=== PATIENT | female | born 1980 | race Caucasian/White ===

== ENCOUNTER → 2022-03-06 14:06 | Outpatient (BNVA) | payer OTHER, SELFPAY | PROVIDERS: Visit Provider Nurse Practitioner Psychiatric/Mental Health | DX: F14.20 Cocaine dependence, uncomplicated (principal); F41.9 Anxiety disorder, unspecified; F32.A Depression, unspecified | CPT/HCPCS: 99212 ==

== ENCOUNTER → 2022-03-19 13:02 | Outpatient (BNVA) | payer OTHER, SELFPAY | PROVIDERS: Visit Provider Nurse Practitioner Psychiatric/Mental Health | DX: F10.20 Alcohol dependence, uncomplicated (principal); F14.20 Cocaine dependence, uncomplicated | CPT/HCPCS: 80305; 81025; 96372; 99212 ==

== ENCOUNTER 2022-04-17 10:32 | Outpatient (REF) | payer OTHER, SELFPAY ==
[2022-04-17 13:33] LABS: Alanine Aminotransferase 14 U/L (0-31); Albumin Level 4.1 g/dL (3.5-5.0); Alkaline Phosphatase 52 U/L (39-117); Aspartate Amino Transferase 14 U/L (5-31); Bilirubin Direct < 0.2 mg/dL (0.0-0.5); Bilirubin Total 0.4 mg/dL (0.0-1.0); Total Protein 6.5 g/dL (6.5-8.0)
== END 2022-04-17 10:33 | disposition home or self-care (01) ==
LOC: HO.LAB 10:32
PROVIDERS: PCP Internal Medicine; Visit Provider Nurse Practitioner Psychiatric/Mental Health
DX: F10.20 Alcohol dependence, uncomplicated (principal); F14.20 Cocaine dependence, uncomplicated; F41.9 Anxiety disorder, unspecified; F32.A Depression, unspecified; Z79.899 Other long term (current) drug therapy
CPT/HCPCS: 36415; 80076; 80305; 81025; 96372

== ENCOUNTER → 2022-06-05 13:11 | Outpatient (BNVA) | payer OTHER, SELFPAY | PROVIDERS: PCP Internal Medicine; Visit Provider Nurse Practitioner Psychiatric/Mental Health | DX: Z13.89 Encounter for screening for other disorder (principal) ==

== ENCOUNTER → 2022-07-10 13:03 | Outpatient (BNVA) | payer OTHER, SELFPAY | PROVIDERS: PCP Internal Medicine; Visit Provider Nurse Practitioner Psychiatric/Mental Health | DX: Z13.89 Encounter for screening for other disorder (principal) ==

== ENCOUNTER → 2022-09-04 13:25 | Outpatient (BNVA) | payer OTHER, SELFPAY | PROVIDERS: PCP Internal Medicine; Visit Provider Nurse Practitioner Psychiatric/Mental Health | DX: F10.20 Alcohol dependence, uncomplicated (principal); F14.20 Cocaine dependence, uncomplicated; F32.A Depression, unspecified; F41.9 Anxiety disorder, unspecified; Z79.891 Long term (current) use of opiate analgesic | CPT/HCPCS: 80305 ==

== ENCOUNTER → 2022-10-09 13:14 | Outpatient (BNVA) | payer OTHER, SELFPAY | PROVIDERS: PCP Internal Medicine; Visit Provider Nurse Practitioner Psychiatric/Mental Health | DX: Z51.81 Encounter for therapeutic drug level monitoring (principal) ==

== ENCOUNTER 2022-12-11 14:13 | Outpatient (AMB) | payer OTHER, SELFPAY ==
--- NOTE | 2022-12-11 14:18 | MHC.OFFVIS ---
Intake Vital Signs 12/11/22 14:21 BP 110/70 Blood Pressure Location Lt radial Position Sitting Pulse 72 Pulse Source Pulse Oximeter Pulse Oximetry (%) 98 Oxygen Delivery Method Room Air Intake Visit Reasons: MAT Visit Intake Note: the patient presents for a mat visit Conductor And Engineer Required: No Allergies Penicillins [PENICILLINS] Allergy (Unknown, Unverified 10/09/22 13:26) HIVES Medication List - Last Reconciled 12/11/22 by Cassandra Ontiveros, JOE aripiprazole 5 mg PO DAILY clonidine HCl 0.1 mg PO .TID PRN doxepin 25 mg PO BEDTIME fluoxetine 10 mg PO DAILY fluoxetine 20 mg PO DAILY gabapentin 300 mg PO TID hydroxyzine HCl 50 mg PO TID PRN naltrexone 50 mg PO DAILY topiramate 100 mg PO BID HPI MAT Visit HPI Details Patient presents for follow up In recovery for 11 months Reporting increasing stress at work. Minimal time off. Discussed strategies for self care, including setting boundaries at work Denies any thoughts of drinking. Has not attended any meetings due to minimal time off. Working sometimes from Refilled medications Review of Systems Const Reports as per HPI and Reports no additional complaints Physical Exam Vital Signs: Last Vital Signs Pulse 72 12/11/22 14:21 BP 110/70 12/11/22 14:21 Pulse Ox 98 12/11/22 14:21 Oxygen Delivery Method Room Air 12/11/22 14:21 Const General: cooperative, comfortable, no acute distress and alert Nutritional Appearance: average body habitus Orientation/consciousness: patient oriented x3 Limitations: no limitations Neuro General: patient oriented x3 Psych Appearance: grossly normal Mental Status: mental status grossly normal Speech and movement: Normal speech and movement present Affect: Anxious affect present (slightly) Attitude: cooperative Thought process: Normal thought process present Thought content: Normal thought content present Insight: Good insight present (Psych) Judgement: Good judgement present (Psych) Assessment & Plan Assessment & Plan (1) Alcohol use disorder, moderate, dependence: Code(s): F10.20 - Alcohol dependence, uncomplicated Plan: continue naltrexone relapse prevention discussion follow up 6 weeks Medications: New gabapentin 300 mg PO BEDTIME 30 caps 3RF Refilled aripiprazole 5 mg PO DAILY 30 tabs 0RF doxepin 25 mg PO BEDTIME 30 caps 1RF Discontinued gabapentin Discontinued Reason: Doctor's Order 300 mg PO TID 90 caps 0RF Coding Level of Care Code Est Pt Level 3 (62856) Diagnoses Alcohol use disorder, moderate, dependence F10.20
[2022-12-11 14:21] VITALS: BP 110/70; PULSE 72; O2SAT 98
== END 2022-12-11 14:49 | disposition home or self-care (01) ==
LOC: HO.HCC 14:13
PROVIDERS: PCP Internal Medicine; Visit Provider Nurse Practitioner Psychiatric/Mental Health
DX: F10.20 Alcohol dependence, uncomplicated (principal)
CPT/HCPCS: 99213

== ENCOUNTER → 2022-12-11 14:13 | Outpatient (BNVA) | payer OTHER, SELFPAY | PROVIDERS: PCP Internal Medicine; Visit Provider Nurse Practitioner Psychiatric/Mental Health ==

== ENCOUNTER 2023-01-09 14:56 | Outpatient (AMB) | payer OTHER, SELFPAY ==
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
[2023-01-09 15:15] VITALS: BP 128/76; PULSE 81; RESP 18; O2SAT 100; BMI 42.2
== END 2023-01-09 15:55 | disposition home or self-care (01) ==
PROVIDERS: PCP Internal Medicine; Visit Provider Registered Nurse Emergency
DX: S46.912A Strain of unspecified muscle, fascia and tendon at shoulder and upper arm level, left arm, initial encounter (principal)
CPT/HCPCS: 99204

== ENCOUNTER → 2023-01-09 14:56 | Outpatient (BNVA) | payer OTHER, SELFPAY | PROVIDERS: PCP Internal Medicine; Visit Provider Registered Nurse Emergency ==

== ENCOUNTER 2023-01-22 12:52 | Outpatient (AMB) | payer OTHER, SELFPAY ==
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
[2023-01-22 12:58] VITALS: BP 126/78; PULSE 76; O2SAT 99
== END 2023-01-22 13:25 | disposition home or self-care (01) ==
LOC: HO.HCC 12:53
PROVIDERS: PCP Internal Medicine; Visit Provider Nurse Practitioner Psychiatric/Mental Health
DX: F10.21 Alcohol dependence, in remission (principal)
CPT/HCPCS: 99213

== ENCOUNTER → 2023-01-22 12:52 | Outpatient (BNVA) | payer OTHER, SELFPAY | PROVIDERS: PCP Internal Medicine; Visit Provider Nurse Practitioner Psychiatric/Mental Health ==

== ENCOUNTER 2023-03-26 12:59 | Outpatient (AMB) | payer OTHER, SELFPAY ==
[2023-03-26 13:14] VITALS: BP 110/72; PULSE 74; O2SAT 98
--- NOTE | 2023-03-26 13:14 | A.OFFVIS_ITS ---
Intake Vital Signs 03/26/23 13:14 BP 110/72 Blood Pressure Location Lt radial Position Sitting Pulse 74 Pulse Source Pulse Oximeter Pulse Oximetry (%) 98 Oxygen Delivery Method Room Air Intake Visit Reasons: mat visit Intake Note: the patient presents for a mat visit Web Solutions Architect Required: No Allergies Penicillins [PENICILLINS] Allergy (Unknown, Verified 03/26/23 13:16) HIVES Do you need a note to return to daycare/school/sports/work: No HPI mat visit HPI Details Pt presents for AUD treatment and follow up She has been working a lot lately, says it is short staffed at work and she has been called in frequently. States this is why she missed her last few appointments. She has been attending meetings 3x weekly, would like to do more but cannot due to her work schedule. She meets with her sponsor once weekly. She is feeling solid in her recovery, just recently celebrated 1 year of sobriety,' She has not been taking the naltrexone due to the copay. She is feeling like she is doing ok without. Says she hasn't taken it in 2 months. She is going on a cruise next week with her family that she is excited for. Review of Systems Const Reports as per HPI Physical Exam Vital Signs: Last Vital Signs Pulse 74 03/26/23 13:14 BP 110/72 03/26/23 13:14 Pulse Ox 98 03/26/23 13:14 Oxygen Delivery Method Room Air 03/26/23 13:14 Const General: cooperative and healthy appearing Resp Effort & Inspection: normal respiratory effort Psych Appearance: grossly normal and well kempt Mental Status: mental status grossly normal Affect: normal affect Attitude: cooperative Thought content: Normal thought content present Assessment & Plan Assessment & Plan (1) Alcohol use disorder, severe, in sustained remission: Code(s): F10.21 - Alcohol dependence, in remission Plan: Follow up 6 weeks Sent Rx for scopolamine patch for motion sickness Educated pt to try one of the patches before she leaves on her cruise to make sure she does not have any adverse reactions. Reviewed signs and symptoms of allergic reaction and when to seek a higher level of care. Medications: New scopolamine base 1 patch transdermal Q3D PRN 4 ea 0RF motion sickness Discontinued naltrexone Discontinued Reason: Patient no longer taking 50 mg PO DAILY 30 tabs 3RF Coding Level of Care Code Est Pt Level 3 (03609) Diagnoses Alcohol use disorder, severe, in sustained remission F10.21
== END 2023-03-26 13:41 | disposition home or self-care (01) ==
PROVIDERS: PCP Internal Medicine; Visit Provider Nurse Practitioner Family
DX: F10.21 Alcohol dependence, in remission (principal)
CPT/HCPCS: 99213

== ENCOUNTER → 2023-03-26 12:59 | Outpatient (BNVA) | payer OTHER, SELFPAY | PROVIDERS: PCP Internal Medicine; Visit Provider Nurse Practitioner Family ==

== ENCOUNTER 2023-07-23 11:27 | Outpatient (AMB) | payer OTHER, SELFPAY ==
--- NOTE | 2023-07-23 11:28 | A.OFFVISCC_ITS ---
Intake Vital Signs 07/23/23 11:41 BP 126/82 Blood Pressure Location Lt radial Position Sitting Pulse 88 Pulse Source Pulse Oximeter Pulse Oximetry (%) 98 Oxygen Delivery Method Room Air Intake Visit Reasons: MAT Intake Note: the patient presents for a mat visit Social Services Coordinator Required: No Allergies Penicillins [PENICILLINS] Allergy (Unknown, Verified 07/23/23 11:32) HIVES Do you need a note to return to daycare/school/sports/work: No HPI MAT HPI Details Patient presents for AUD treatment and follow up Reports she has 18 months sober as of 07/06! Recently had left shoulder surgery in April, has been on light duty at work as a result Has no concerns for recovery at this time, attends AA meeting every morning Review of Systems Const Reports as per HPI Physical Exam Vital Signs: Last Vital Signs Pulse 88 07/23/23 11:41 BP 126/82 07/23/23 11:41 Pulse Ox 98 07/23/23 11:41 Oxygen Delivery Method Room Air 07/23/23 11:41 Const General: cooperative and healthy appearing Resp Effort & Inspection: normal respiratory effort Psych Appearance: grossly normal Mental Status: mental status grossly normal Speech and movement: Normal speech and movement present Affect: normal affect Attitude: cooperative Assessment & Plan Assessment & Plan (1) Alcohol use disorder, severe, in sustained remission: Code(s): F10.21 - Alcohol dependence, in remission Plan: -Discussed with her updating labwork, labs ordered- pt to get done before next visit -Follow up 4 weeks -Reviewed with her to call [facility] with questions/concerns Orders: Orders Complete Blood Count Auto Diff Today F10.21 - Alcohol dependence, in remission AMB 14 Panel Urine Drug Screen Today Z51.81 - Encounter for therapeutic drug level monitoring Comprehensive Met. Panel Today F10.21 - Alcohol dependence, in remission Medications: Refilled topiramate 100 mg PO BID 180 tabs 1RF doxepin 25 mg PO BEDTIME 30 caps 3RF fluoxetine 20 mg PO DAILY 30 caps 3RF fluoxetine 10 mg PO DAILY 30 caps 3RF Discontinued clonidine HCl Hold for systolic bp <90 Discontinued Reason: Patient no longer taking 0.1 mg PO .TID PRN 90 tabs 1 RF for anxiety gabapentin Discontinued Reason: Patient no longer taking 300 mg PO BEDTIME 30 caps 3RF tizanidine no driving while taking this medication. may cause drowsiness. Discontinued Reason: Patient no longer taking 2 mg PO BID 14 days PRN 30 tabs 0RF muscle spasticity lidocaine 5% leave on most painful area for up to 12 hrs Discontinued Reason: Patient no longer taking 1 patch topical DAILY 30 ea 0RF Coding Level of Care Code Est Pt Level 3 (71271) Diagnoses Alcohol use disorder, severe, in sustained remission F10.21
[2023-07-23 11:41] VITALS: BP 126/82; PULSE 88; O2SAT 98
== END 2023-07-23 12:00 | disposition home or self-care (01) ==
PROVIDERS: PCP Internal Medicine; Visit Provider Nurse Practitioner Family
DX: F10.21 Alcohol dependence, in remission (principal)
CPT/HCPCS: 99213

== ENCOUNTER 2023-07-23 11:27 | Outpatient (REF) | payer OTHER, SELFPAY ==
[2023-07-23 12:11] LABS: MANUAL DIFF FLAG NO
[2023-07-23 12:42] LABS: Basophils Percent Auto 0.4 % (0-2); Eosinophils Absolute Auto 0.4 X10*3/uL (0.0-0.4); Eosinophils Percent Auto 4.7 % (0-4); Hematocrit 36.6 % (37.0-47.0); Imm Gran Abs Auto 0.05 X10*3/uL (0.00-0.03); Imm Gran Pct Auto 0.6 % (0.0-0.4); Lymphocytes Absolute Auto 2.5 X10*3/uL (1.2-4.9); Lymphocytes Percent Auto 29.3 % (20-40); Mean Corpuscular HGB Conc 32.8 g/dl (31.0-35.0); Mean Corpuscular Hemoglobin 29.3 pg (27.0-33.0); Mean Corpuscular Volume 89.5 fL (80.0-98.0); Mean Platelet Volume 9.5 fL (9.4-12.3); Monocytes Absolute Auto 0.6 X10*3/uL (0.1-1.2); Monocytes Percent Auto 7.4 % (2-11); Neutrophils Absolute Auto 4.9 x10*3/uL (2.0-8.3); Neutrophils Percent Auto 57.6 % (45-73); Platelet Count 331 X10*3/uL (160-400); Red Blood Count 4.09 X10*6/uL (4.20-5.50); Red Cell Distribution Width 13.2 % (11.0-16.0); White Blood Count 8.4 X10*3/uL (4.8-10.8)
[2023-07-23 13:13] LABS: Alanine Aminotransferase 10 U/L (0-31); Alkaline Phosphatase 70 U/L (39-117); Anion Gap 11 (12-20); Aspartate Amino Transferase 10 U/L (5-31); Bilirubin Total 0.2 mg/dL (0.0-1.0); Blood Urea Nitrogen 9 mg/dL (9-16); Calcium 9.3 mg/dL (8.4-10.2); Carbon Dioxide 24 mmol/L (22-29); Chloride 110 mmol/L (96-108); Estimated Glomerular Filt Rate > 60; Glucose Random 85 mg/dL (60-115); Potassium 3.7 mmol/L (3.3-5.1); Sodium 141 mmol/L (135-145); Total Protein 6.9 g/dL (6.5-8.0)
== END 2023-07-23 11:28 | disposition home or self-care (01) ==
LOC: HO.LAB 11:27
PROVIDERS: PCP Internal Medicine; Visit Provider Nurse Practitioner Family
DX: F10.21 Alcohol dependence, in remission (principal)
CPT/HCPCS: 36415; 80053; 85025

== ENCOUNTER 2023-08-20 11:20 | Outpatient (AMB) | payer OTHER, SELFPAY ==
--- NOTE | 2023-08-20 11:21 | A.OFFVISCC_ITS ---
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 reports depressive sx well managed finds topomax effective in managing cocaine cravings no concerns at this time Review of Systems Const Reports as per HPI and Reports no additional complaints Physical Exam Vital Signs: Last Vital Signs Resp 20 08/20/23 11:26 BP 140/80 H 08/20/23 11:26 Pulse Ox 98 08/20/23 11:26 Oxygen Delivery Method Room Air 08/20/23 11:26 Const General: cooperative and healthy appearing Orientation/consciousness: patient oriented x3 Limitations: no limitations Neuro General: patient oriented x3 Psych Appearance: well kempt Speech and movement: Normal speech and movement present Affect: normal affect Attitude: cooperative Thought process: Normal thought process present Thought content: Normal thought content present Insight: Good insight present (Psych) Judgement: Good judgement present (Psych) Assessment & Plan Assessment & Plan (1) Alcohol use disorder, severe, in sustained remission: Code(s): F10.21 - Alcohol dependence, in remission Category: Medical Plan: * recovery supports in place * medication changes updated * med review in 4 months Medications: Discontinued doxepin Discontinued Reason: Patient no longer taking 25 mg PO BEDTIME 30 caps 3RF
[2023-08-20 11:26] VITALS: BP 140/80; RESP 20; O2SAT 98
== END 2023-08-20 11:59 | disposition home or self-care (01) ==
PROVIDERS: PCP Internal Medicine; Visit Provider Nurse Practitioner Psychiatric/Mental Health
DX: F10.21 Alcohol dependence, in remission (principal)
CPT/HCPCS: 99213

== ENCOUNTER → 2023-08-20 11:20 | Outpatient (BNVA) | payer OTHER, SELFPAY | PROVIDERS: PCP Internal Medicine; Visit Provider Nurse Practitioner Psychiatric/Mental Health | DX: Z51.81 Encounter for therapeutic drug level monitoring (principal); F10.21 Alcohol dependence, in remission ==

== ENCOUNTER 2023-11-29 11:25 | Outpatient (AMB) | payer OTHER, SELFPAY ==
--- NOTE | 2023-11-29 11:32 | A.OFFVISCC_ITS ---
Intake Visit Reasons: MAT Allergies Penicillins [PENICILLINS] Allergy (Unknown, Verified 07/23/23 11:32) HIVES HPI HPI MAT: Details: Patient presents for follow up Bright affect Starts work soon -in a school Has been spending time with her daughters and mother -traveling Reflecting on time in recovery--expressing some guilt aroudn how her use impacted her children and her time Review of Systems Const Reports as per HPI and Reports no additional complaints Physical Exam Const General: cooperative and healthy appearing Orientation/consciousness: patient oriented x3 Limitations: no limitations Neuro General: patient oriented x3 Psych Appearance: well kempt Speech and movement: Normal speech and movement present Affect: normal affect Attitude: cooperative Thought process: Normal thought process present Thought content: Normal thought content present Insight: Good insight present (Psych) Judgement: Good judgement present (Psych) Assessment & Plan Assessment & Plan (1) Alcohol use disorder, severe, in sustained remission: Code(s): F10.21 - Alcohol dependence, in remission Category: Medical Plan: * continue medications as prescribed * follow up 3 months * relapse prevention discussion Medications: Refilled fluoxetine 10 mg PO DAILY 30 caps 3RF topiramate 100 mg PO BID 180 tabs 1RF
== END 2023-11-29 12:59 | disposition home or self-care (01) ==
PROVIDERS: PCP Internal Medicine; Visit Provider Nurse Practitioner Psychiatric/Mental Health
DX: F10.21 Alcohol dependence, in remission (principal)
CPT/HCPCS: 99213

== ENCOUNTER → 2023-11-29 11:25 | Outpatient (BNVA) | payer OTHER, SELFPAY | PROVIDERS: PCP Internal Medicine; Visit Provider Nurse Practitioner Psychiatric/Mental Health | DX: Z51.81 Encounter for therapeutic drug level monitoring (principal); F10.21 Alcohol dependence, in remission ==

== ENCOUNTER 2024-02-19 15:23 | Outpatient (AMB) | payer OTHER, SELFPAY ==
--- NOTE | 2024-02-19 16:24 | MHC.AM.SUB ---
Intake Visit Reasons: MAT Allergies Penicillins [PENICILLINS] Allergy (Unknown, Verified 07/23/23 11:32) HIVES HPI HPI MAT: Details: Patient presents for follow up tearful asking for increase in prozac stress at home working, but not making minimum wage, so this is creating more issues for her reviewed coping strategies denies any substance use or even thoughts of use during this time Review of Systems Const Reports as per HPI Physical Exam Const General: cooperative, healthy appearing, anxious and well groomed Psych Appearance: well kempt Speech and movement: Clear speech present Affect: Sad affect present Attitude: cooperative Assessment & Plan Assessment & Plan (1) Alcohol use disorder, severe, in sustained remission: Code(s): F10.21 - Alcohol dependence, in remission Category: Medical Plan: relapse prevention discussion (2) Depression: Code(s): F32.A - Depression, unspecified Category: Medical Qualifiers: Depression Type: major depressive disorder Major depression recurrence: recurrent Plan: increase fluoxetine to 40mg daily follow up 3 weeks Orders: Orders Complete Blood Count Auto Diff 02/19/24 Z79.899 - Other regional intermodal truck driver (current) drug therapy Comprehensive Met. Panel 02/19/24 Z79.899 - Other regional intermodal truck driver (current) drug therapy
== END 2024-02-19 15:59 | disposition home or self-care (01) ==
PROVIDERS: PCP Internal Medicine; Visit Provider Nurse Practitioner Psychiatric/Mental Health
DX: F10.21 Alcohol dependence, in remission (principal); F32.A Depression, unspecified
CPT/HCPCS: 99214

== ENCOUNTER → 2024-02-19 15:23 | Outpatient (BNVA) | payer OTHER, SELFPAY | PROVIDERS: PCP Internal Medicine; Visit Provider Nurse Practitioner Psychiatric/Mental Health | DX: Z51.81 Encounter for therapeutic drug level monitoring (principal); F10.21 Alcohol dependence, in remission ==

== ENCOUNTER 2024-04-23 13:37 | Outpatient (REF) | payer OTHER, SELFPAY ==
[2024-04-23 13:56] LABS: MANUAL DIFF FLAG NO
[2024-04-23 14:05] LABS: Basophils Percent Auto 0.4 % (0-2); Eosinophils Absolute Auto 0.3 X10*3/uL (0.0-0.4); Eosinophils Percent Auto 3.6 % (0-4); Hematocrit 34.9 % (37.0-47.0); Hemoglobin 11.5 g/dl (12.0-16.0); Imm Gran Abs Auto 0.03 X10*3/uL (0.00-0.03); Imm Gran Pct Auto 0.4 % (0.0-0.4); Lymphocytes Absolute Auto 2.7 X10*3/uL (1.2-4.9); Lymphocytes Percent Auto 32.3 % (20-40); Mean Corpuscular Hemoglobin 29.9 pg (27.0-33.0); Mean Corpuscular Volume 90.9 fL (80.0-98.0); Mean Platelet Volume 9.3 fL (9.4-12.3); Monocytes Absolute Auto 0.7 X10*3/uL (0.1-1.2); Monocytes Percent Auto 7.9 % (2-11); Neutrophils Absolute Auto 4.6 x10*3/uL (2.0-8.3); Neutrophils Percent Auto 55.4 % (45-73); Platelet Count 297 X10*3/uL (160-400); Red Blood Count 3.84 X10*6/uL (4.20-5.50); Red Cell Distribution Width 13.8 % (11.0-16.0); White Blood Count 8.4 X10*3/uL (4.8-10.8)
[2024-04-23 14:37] LABS: Alanine Aminotransferase 12 U/L (0-31); Albumin Level 3.5 g/dL (3.5-5.0); Alkaline Phosphatase 48 U/L (39-117); Anion Gap 7 (12-20); Aspartate Amino Transferase 15 U/L (5-31); Bilirubin Total 0.3 mg/dL (0.0-1.0); Blood Urea Nitrogen 9 mg/dL (9-16); Calcium 8.4 mg/dL (8.4-10.2); Carbon Dioxide 23 mmol/L (22-29); Chloride 111 mmol/L (96-108); Estimated Glomerular Filt Rate > 60; Glucose Random 91 mg/dL (60-115); Potassium 3.7 mmol/L (3.3-5.1); Sodium 137 mmol/L (135-145); Total Protein 5.7 g/dL (6.5-8.0)
== END 2024-04-23 13:38 | disposition home or self-care (01) ==
LOC: HO.LAB 13:37
PROVIDERS: PCP Internal Medicine; Visit Provider Nurse Practitioner Psychiatric/Mental Health
DX: F32.A Depression, unspecified (principal); Z79.899 Other long term (current) drug therapy
CPT/HCPCS: 36415; 80053; 85025

== ENCOUNTER 2024-04-23 14:00 | Outpatient (AMB) | payer OTHER, SELFPAY ==
--- NOTE | 2024-04-23 14:06 | A.OFFVISCC_ITS ---
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 discussed self care--will start doing jose art agin Review of Systems Const Reports as per HPI and Reports no additional complaints Physical Exam Const General: cooperative, healthy appearing, anxious and well groomed Psych Appearance: well kempt Speech and movement: Clear speech present Affect: Sad affect present Attitude: cooperative Assessment & Plan Assessment & Plan (1) Alcohol use disorder, severe, in sustained remission: Code(s): F10.21 - Alcohol dependence, in remission Category: Medical Plan: * relapse prevention discussion (2) Depression: Code(s): F32.A - Depression, unspecified Category: Medical Qualifiers: Depression Type: major depressive disorder Major depression recurrence: recurrent Plan: * continue fluoxetine at current dose * follow up 2 months
== END 2024-04-23 14:58 | disposition home or self-care (01) ==
PROVIDERS: PCP Internal Medicine; Visit Provider Nurse Practitioner Psychiatric/Mental Health
DX: F10.21 Alcohol dependence, in remission (principal); F32.A Depression, unspecified
CPT/HCPCS: 99214

== ENCOUNTER 2024-07-15 15:21 | Outpatient (AMB) | payer OTHER, SELFPAY ==
--- NOTE | 2024-07-15 15:36 | MHC.AM.SUB ---
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 Discussed how therapy may be beneficial in working through some of these things agreeable to referral for support Review of Systems Const Reports as per HPI Psych Reports anxiety and Reports anhedonia Physical Exam Const General: cooperative, healthy appearing, anxious and well groomed Psych Appearance: well kempt Speech and movement: Clear speech present Affect: normal affect Attitude: cooperative Thought process: Normal thought process present Thought content: Normal thought content present Insight: Good insight present (Psych) Judgement: Good judgement present (Psych) Assessment & Plan Assessment & Plan (1) Depression: Code(s): F32.A - Depression, unspecified Category: Medical Qualifiers: Depression Type: major depressive disorder Major depression recurrence: recurrent Plan: continue prozac 40mg QD referral placed to [facility] for therapy and possibly med provider eval (2) Alcohol use disorder, severe, in sustained remission: Code(s): F10.21 - Alcohol dependence, in remission Category: Medical Plan: relapse prevention discussion follow up 3 months Orders: Referrals Counseling Referral F10.21 - Alcohol dependence, in remission, F32.A - Depression, unspecified
== END 2024-07-15 16:17 | disposition home or self-care (01) ==
LOC: HO.HCC 15:21
PROVIDERS: PCP Internal Medicine; Visit Provider Nurse Practitioner Psychiatric/Mental Health
DX: F10.21 Alcohol dependence, in remission (principal)
CPT/HCPCS: 99213

== ENCOUNTER → 2024-07-15 15:21 | Outpatient (BNVA) | payer OTHER, SELFPAY | PROVIDERS: PCP Internal Medicine; Visit Provider Nurse Practitioner Psychiatric/Mental Health | DX: F32.A Depression, unspecified (principal); F10.21 Alcohol dependence, in remission | CPT/HCPCS: 99212 ==

== ENCOUNTER → 2024-10-12 15:27 | Outpatient (BNVA) | payer OTHER, MEDICAID, SELFPAY | PROVIDERS: PCP Internal Medicine; Visit Provider Internal Medicine ==

== ENCOUNTER 2025-02-22 14:56 | Outpatient (AMB) | payer OTHER, MEDICAID, SELFPAY ==
--- NOTE | 2025-02-22 15:06 | MHC.OFFVIS ---
Vital Signs 02/22/25 15:07 Height 5 ft 4 in Weight 222 lb BMI 38.1 BP 136/78 Pulse 78 Pulse Oximetry (%) 98 Intake Visit Reasons: MAT Allergies Penicillins (PENICILLINS) Allergy (Unknown, Verified 02/22/25 15:07) HIVES Medication List - Last Reconciled 02/22/25 by LANDON MorelandC fluoxetine 40 mg PO DAILY levothyroxine 50 mcg PO DAILY topiramate 100 mg PO BID 30 days HPI Comments Details: A 45-year-old female presents for a follow-up visit r/t stimulant use disorder in sustained remission with topiramate 100 mg BID. Denies use of opiates, alcohol, and other substances. Acknowledges vaping for nicotine and intermittent cannabis use. Engages in conversation re: plans to follow up with mental health referral. Review of Systems Const All systems reviewed & are unremarkable except as noted in HPI and below Physical Exam Vital Signs: Last Vital Signs Pulse 78 02/22/25 15:07 BP 136/78 02/22/25 15:07 Pulse Ox 98 02/22/25 15:07 BMI result Body Mass Index 38.1 Const General: cooperative Assessment & Plan Assessment & Plan (1) Other stimulant use, unspecified, in remission: Code(s): F15.91 - Other stimulant use, unspecified, in remission Category: Medical Plan The plan is to continue with topiramate 100 mg BID and fluoxetine 40 mg daily. Education provided to engage in risk reduction activities to minimize use of nicotine and cannabis. Encouraged follow-up with [facility]. Follow-up in 3 months or sooner if needed. Medications: Changed From fluoxetine (Prozac) 40 mg PO DAILY 90 caps 3RF To fluoxetine 40 mg PO DAILY 90 caps 0RF Refilled topiramate 100 mg PO BID 60 tabs 2RF 30 days Patient Instructions: - Continue with topiramate and fluoxetine as prescribed. - Engage in risk reduction activities to minimize use of nicotine and cannabis. - Follow up with [facility] re: mental health services. - Follow-up in 3 months or sooner if needed. - Call with questions, concerns, or to report side effects/new onset of symptoms to [facility]. - The patient verbalized understanding and agreed with plan of care. Coding Level of Care Code Est Pt Level 3 (39462) Diagnoses Other stimulant use, unspecified, in remission F15.91
[2025-02-22 15:07] VITALS: BP 136/78; PULSE 78; O2SAT 98; BMI 38.1
--- OUTSIDE RECORDS SUMMARY | 2025-02-22 18:21 | XMS_ITS | Clinical Summary ---
Author Organization [facility] Address [address] [place] [address] Phone Care Team Providers Care Rn Pain Management Name Role Phone Unavailable Primary Care Provider Unavailabl e Social History Tobacco Use Types Packs/Day Years Used Date Smoking Tobacco: Never Assessed Comments Unknown Sex and Gender Information Value Date Recorded Sex Assigned at Not on file Legal Sex Female 4:06 PM EDT Gender Identity Not on file Sexual Orientation Not on file Plan of Treatment Health Maintenance Due Date Last Done Comments MMR Vaccines (1 of 1 - Stand jose series) 01/07/1981 Varicella Vaccines (1 of 2 - 13+ 2-dose series) 01/07/1993 DTaP,Tdap,and Td Vaccines (1 - Tdap) 01/07/1998 Hepatitis B Vaccines (1 of 3 - 19+ 3-dose series) 01/07/1999 HPV Vaccines (1 - 3-dose SCD M series) 01/07/2007 Influenza Vaccines (#1) 2024 COVID-19 Vaccine ( - 2024-2 6 season) 2024 HIB Vaccines Aged Out No longer eligi ble based on patient's age to complete this topic Hepatitis A Vaccines Aged Out No long er eligible based on patient's age to complete this topic IPV Vaccines Aged Out No longer eligi ble based on patient's age to complete this topic Men B Vaccine Aged Out No longer elig ible based on patient's age to complete this topic Meningococcal Vaccine Aged Out No jennifer marimar eligible based on patient's age to complete this topic Pneumococcal Vaccine Aged Out No long er eligible based on patient's age to complete this topic
--- OUTSIDE RECORDS SUMMARY | 2025-02-22 18:21 | XMS_ITS | Data Portability ---
Author Organization [place] [facility], Allergy Address [address] [address] Care Team Providers Care Agent Licensing Clerk Name Role Phone SHAVONKWABENA BROWN Primary Care Provider [phone] JESSICA SOARES Primary Care Provider [phone] Assessment Encounter Date Assessment Date Assessment LastModified by Organization Details LastModified Time 07/28/2024 07/28/2024 44yo female presents for evaluation of hearing loss. Otologic exam demonstrates TMs are intact with well-aerated middle ear spaces. Audiogram shows normal through 500 Hz sloping to a severe SNHL with excellent speech discrimination. Patient is medically cleared for amplification. She will pursue hearing aid evaluation in our office. Recommend annual follow up with repeat audiometric testing, or sooner with any concerns. [email or web address] Not available 07/28/2024 14:50:44 Plan of Treatment Reminders Order Date Submit Date Provider Last Modified By Organization Details Last Modified Time Details Appointments None record ed. Lab None record ed. Referral None record ed. Procedures None record ed. Surgeries None record ed. Imaging None record ed. Medication Orders None record ed. Patient TargetsNo targets recorded. Patient InstructionsNo instructions recorded. Reason for Referral None Reported. Results Created Date Observation Date Name Description Value Unit Range Abnormal Flag Note LastModifiedBy Organization Detail LastModifiedTime 07/29/19 25 audio gram No observ ation record ed. BARCODE Not Available 2024 14:42:30 Result Notes None recorded. Problems Name Problem SNOMED Code Status Onset Date Resolution Date Notes Provider Name and Address Organization Details Recorded Time Sensorineur al hearing loss of bilateral ears 965117418 Active [address] [facility] [address], [place], [address], [facility] - [facility] 13:32:31 Bilateral tinnitus 3368954280877 Active 2024 QUE AGARWAL PA-C 100 [facility] 100, [place], [address], [facility] - [facility] 14:43:33 Problem Notes None recorded. Procedures Surgical History Date Name Laterality Status Provider Name and Address Organization Details Recorded Time 07/28/2024 Comp Audio with Tymps - 97736 & 27056 completed DENNISE VALDES 100 [facility] 100, [place], [address], [facility] - [facility] 07/28/2024 13:31:52 Imaging Results None recorded. Procedure Notes None recorded. Medical Equipment None Reported. Allergies Allergen ID Allergen Name Allergen Category Reaction Reaction Severity Criticality Documentation Date Start Date Code Code System Note Provider Name and Address Organization Details Recorded Time 947898 Product containin g penicilli n (product) medicatio n Not available Not available Not available 07/28/2024 71742 8001 SNOMED Cindi garcia [facility] 13:46:35 Medications Name Sig Start Date Stop Date Status Note LastModified by Organization Details LastModified Time fluoxetine 40 mg capsule TAKE 1 CAPSULE BY MOUTH EVERY DAY active Not Available Not Available No t Available levothyroxin e 50 mcg tablet TAKE 1 TABLET BY MOUTH EVERY DAY active Not Available Not Available No t Available fluoxetine 10 mg capsule TAKE 1 CAPSULE BY MOUTH DAILY 07/28 completed Not Available Not Available Not Available topiramate 100 mg tablet TAKE 1 TABLET BY MOUTH 2 TIMES A DAY active Not Available Not Available No t Available fluoxetine 20 mg capsule TAKE 1 CAPSULE BY MOUTH EVERY DAY 07/28 completed Not Available Not Available Not Available Vitals Date Recorded Body height Body mass index (BMI) Body weight Provider Name and Address Organization Details Last Updated DateTime 07/28/2024 163.83 cm 42.9 kg/m2 261765.46 g Cindi Cade [facility] 07/28/2024 13:46:21 Social History None recorded. Functional Status None recorded. Mental Status None recorded. Family History Nothing Reported. Medical History No medical history recorded. Gynecological HistoryNo gynecological history recorded. Obstetrics History GPAL:G 0 P 0 0 0 0 Past Encounters Encounter ID Performer Location Encounter Start Date Encounter Closed Date Diagnosis/Indication Diagnosis SNOMED-CT Code Diagnosis ICD10 Code Diagnosis IMO Codes Diagnosis Note [id number] QUE AGARWAL PA-C [facility] [address] [address] 07/28/2024 13:17:15 07/28/2024 14:32:34 Sensorineural hearing loss of bilateral ears 477497270 H90.3 Right Ear:Normal hearing through 500 Hz sloping to a severe SNHL with excellent speech discrimina tion.Type A tympanogra m.Left Ear:Normal hearing through 500 Hz sloping to a severe SNHL with excellent speech discrimina tion.Type A tympanogra m. Bilateral tinnitus 41607 01655 102 H93.13 Today we discussed the pathophysi ology of tinnitus and the absence of consistent ly successful pharmacolo gic treatments for tinnitus. We discussed masking strategies to decrease awareness of the tinnitus, including using a white noise machine, music, or television . We discussed how exposure to loud noise can worsen tinnitus so I recommende d hearing protection . We also discussed other ways to potentiall y help reduce awareness of tinnitus including avoidance of caffeine, salty meals and NSAIDs. Tinnitus may improve when she starts wearing amplificat ion. Health Concerns Section Related Observation LastModified by Organization Detai ls LastModified Time None Recorded Concern Status LastModified by Organization Details LastModified Time None Recorded Advance Directives Directive None Recorded Payers Insurance Date Sequence Insurance Name Policy Number Policy Kelly Covered Member ID Kelly Member ID Guarantor Name 12/02/2024 1 [facility] [employer] - TOGETHER (MEDICAID HMO) [id number] Kita A Pouliot [id number] Kita A Pouliot 10/06/2024 2 [facility] [id number] Ikta A Pouliot [id number] Kita A Pouliot 12/02/2024 1 [facility] [id number] Kita A Pouliot [id number] Kita A Pouliot 12/02/2024 1 [facility] Kita A Pouliot [id number] Kita A Pouliot 12/02/2024 1 [facility] ([id number]) [id number] Kita Hernandez [id number] Kita Montalvomiguel Notes Date Note Type Note Provider Name and Address Organization Details Recorded Time 07/28/2024 text/html ROS as noted in the HPI 44yo female presents for evaluation of hearing loss. This has been gradual for a couple years, and feels symmetrical. Reports constant bilateral tinnitus, worse in the last 6 months. Denies ear pain, drainage, or dizziness. Denies prior ear infections or ear surgeries. No history of loud noise exposure. Qtip use. She has seasonal allergies. QUE AGARWAL PA-C [address] [place] [address], [address], [facility] - [facility] 07/28/2024 14:51:42 OBGyn Episode No OBEpisode recorded.
--- OUTSIDE RECORDS SUMMARY | 2025-02-22 18:21 | XMS_ITS | Encounter Summary ---
Author Organization [facility] Address [address] [place] [address] Phone Care Team Providers Care Condominium Property Manager Name Role Phone Unavailable Primary Care Provider Unavailabl e Encounter Details Date Type Department Care Team (Late st Contact Info) Description 07/18/2011 Documentation [facility] Family Medicine [address] [place] [address] Family Medicine, Physician [address] [place] [address] Social History Tobacco Use Types Packs/Day Years Used Date Smoking Tobacco: Never Assessed Comments Unknown Sex and Gender Information Value Date Recorded Sex Assigned at Not on file Legal Sex Female 4:06 PM EDT Gender Identity Not on file Sexual Orientation Not on file documented as of this encounter Plan of Treatment Not on file documented as of this encounter Visit Diagnoses Not on filedocumented in this encounter
--- OUTSIDE RECORDS SUMMARY | 2025-02-22 18:21 | XMS_ITS | Data Portability ---
Author Organization [facility] Address [address] [place] [address] Care Team Providers Care Program Director Air Talent Name Role Phone JACQUELINE BENITES Information Assistant Assessment No assessment recorded. Plan of Treatment Reminders Order Date Submit Date Provider Last Modified By Organization Details Last Modified Time Details Appointments None recorded. Lab None recorded. Referral None recorded. Procedures None recorded. Surgeries None recorded. Imaging None recorded. Medication Orders cephalexin 500 mg capsule 2022 023 [id number], [address] [place], [address], 13:37:17 Patient TargetsNo targets recorded. Patient Instructions Encounter Date Encounter Id Patient Instructions Last Modified By Organization Details Last Modified Time 08/12/2022 [id number] cuts left open: care instructions [email or web address] Not available 08/12/2022 13:37:14 Allow the surgifoam and steristrips to stay on as long as possible. Try to keep on for at least 48 hours. I would recommend keeping it dry for 48 hours. When the come out you don't have to put any creams or lotions on the area. I would be seen again if you develop any: 1. Swelling 2. Redness 3. Purulent discharge 4. Pain I did administer a tetanus shot to you today. Your arm might be sore. I suggest taking some Tylenol tonight. You will not need another tetanus shot for 10 years. [email or web address] Not available 08/12/2022 13:36:13 Reason for Referral None Reported. Problems No Known Problems Procedures Surgical History Date Name Laterality Status Provider Name and Address Organization Details Recorded Time 08/12/2022 Laceration, Simple Repair, (scalp/neck /trunk/kanchan camille/extre mities) 0.1-2.5cm completed ALPHONSO VINCENT [address] [place], [place] [address], [address], [place] - [facility] 08/12/2022 13:42:48 Imaging Results None recorded. Procedure Notes None recorded. Medical Equipment None Reported. Allergies Allergen ID Allergen Name Allergen Category Reaction Reaction Severity Criticality Documentation Date Start Date Code Code System Note Provider Name and Address Organization Details Recorded Time 582817 Product containin g penicilli n (product) medicatio n rash Not available low 08/12/2022 58839 8001 SNOMED Yadira garcia PA - [facility] 3 12:33:44 Medications Name Sig Start Date Stop Date Status Note LastModified by Organization Details LastModified Time cephalexin 500 mg capsule Take 1 capsule 3 times a day by oral route for 5 days. 023 active Not Available Not Available Not Avai lable Vitals Date Recorded Oxygen saturation Oxygen saturation in Arterial blood by Pulse oximetry Heart rate Respiratory rate Pain severity - 0-10 verbal numeric rating [Score] - Reported Body temperature Systolic And Diastolic Provider Name and Address Organization Details Last Updated DateTime 100 % 100 % 79 /min 20 /min 10 97.5 [degF] 117/80 mm[Hg] Yadira Boyd PA - [facility] 12:35:22 Social History Question Answer Notes LastModified by [employer] Details LastModified Time Tobacco Smoking Status Never Smoker Yadira garcia PA - [facility] 08/12/2022 12:34:05 Have You Had Direct Contact, Or Contact During Intimacy, With Monkeypox Rash, Scabs, Or Body Fluids From A Person With Monkeypox? No Information not available 08/12/2022 Have You Recently Traveled Abroad? No Information not available 08/12/2022 Sex: Unknown Functional Status Question Answer Note LastModified by [employer] Details LastModified Time Do you use any illicit or recreational drugs? No Information not available 08/12/2022 Do you or have you ever used any other forms of tobacco or nicotine? No Information not available 08/12/2022 What is your level of alcohol consumption? None Information not available 08/12/2022 Mental Status None recorded. Family History Relationship Description Onset Age of this Age Resolved Age Notes LastModified by Organization Details LastModified Time Father No current problems or disability Not available 08/12 12:33:56 Mother No current problems or disability Not available 08/12 12:33:56 Medical History No medical history recorded. Gynecological HistoryNo gynecological history recorded. Obstetrics History GPAL:G 0 P 0 0 0 0 Immunizations Vaccine Type Date Status Note Provider Nam e and Address Organization Details Recorded Time Influenza, split virus, quadrivalent, PF 8 completed Yadira Deb null, PA - [facility] 08/12/2022 12:30:05 Td (adult), 2 Lf tetanus toxoid, preservative free, adsorbed 3 completed Yadira Deb null, PA - [facility] 08/12/2022 13:42:52 Past Encounters Encounter ID Performer Location Encounter Start Date Encounter Closed Date Diagnosis/Indication Diagnosis SNOMED-CT Code Diagnosis ICD10 Code Diagnosis IMO Codes Diagnosis Note [id number] [address] [address] [address] [address] [place] [address] 10/05/2015 16:18:28 10/05/2015 16:38:07 [id number] [address] [address] [place] [address] 07/07/2018 15:26:18 07/07/2018 16:01:34 [id number] [address] [place] [address] 06/26/2019 08:35:40 06/26/2019 09:17:37 [id number] [address] [address] [place] [address] 08/28/2016 08:29:35 08/28/2016 09:00:39 [id number] [address] [place] [address] 05/10/2019 08:44:57 05/10/2019 09:27:00 [id number] [address] [address] [place] [address] 04/09/2019 13:20:44 04/09/2019 14:02:26 [id number] [address] [place] [address] 02/27/2017 13:31:39 02/27/2017 15:09:15 [id number] [address] [place] [address] 12/27/2015 15:50:15 12/27/2015 17:01:00 [id number] [address] [address] [place] [address] 07/12/2019 15:51:03 07/12/2019 17:00:16 [id number] ALPHONSO VINCENT [address] [place] [address] 08/12/2022 12:24:36 08/12/2022 13:49:33 Laceration of index finger 910021406 S61.211A Health Concerns Section Related Observation LastModified by Organization Detai ls LastModified Time None Recorded Concern Status LastModified by Organization Details LastModified Time None Recorded Advance Directives Directive None Recorded Payers Insurance Date Sequence Insurance Name Policy Number Policy Kelly Covered Member ID Kelly Member ID Guarantor Name 08/12/2022 1 [employer] - TOGETHER (MEDICAID HMO) [id number] Kita Hernandez [id number] Kita Hernandez 08/12/2022 [employer] Generic Employer Kita Hernandez Notes Date Note Type Note Provider Name and Address Organization Details Recorded Time 08/12/2022 text/html Wound / LacerationReported by PatientHPIFor source of patient information, patient reportsinformation obtained from patientandpatient arrived at urgent care ambulatory. For location, patient reportswound # 1 finger. For quality, patient reports__andmoderate bleeding(skin avulsion about 1.5 cm in diameter). For duration, patient reports1 hours. For associated symptoms, patient reportsno fever. For context, (cut with knife.). For vaccination status, (unsure of tetanus status.).Was cutting a sandwich and cut the tip of her finger with a new knife. Bleeding alot. Skin missing. Tetanus status is unknown. Mild pain. ALPHONSO VINCENT [address] [place], [address], [place] - [facility] 08/12/2022 13:43:10 OBGyn Episode No OBEpisode recorded.
--- OUTSIDE RECORDS SUMMARY | 2025-02-22 18:21 | XMS_ITS | Clinical Summary ---
Author Organization [facility] ity Address [address] [place] [address] Care Team Providers Care Sheet Rock Installer Name Role Phone Unavailable Primary Care Provider Unavailabl e Social History Tobacco Use Types Packs/Day Years Used Date Smoking Tobacco: Never Assessed Comments Unknown Sex and Gender Information Value Date Recorded Sex Assigned at Not on file Legal Sex Female 3:35 AM EST Gender Identity Not on file Sexual Orientation Not on file Plan of Treatment Health Maintenance Due Date Last Done Comments Breast Cancer Screening 1980 DTaP,Tdap,and Td Vaccines (1 - Tdap) 01/07/1999 Hepatitis B Vaccines (1 of 3 - 19+ 3-dose series) 01/07/1999 Cervical Cancer Screening: P ap Smear 01/07/2001 HPV Vaccines (1 - 3-dose SCD M series) 01/07/2007 Depression Screening 04/29/2024 COVID-19 Vaccine ( - 2023-2 5 season) 2024 Influenza Vaccine (#1) 2024 RSV Immunization Adult Patie nts (1 - 1-dose 75+ series) 01/07/2055 HIB Vaccines Aged Out No longer eligi ble based on patient's age to complete this topic Hepatitis A Vaccines Aged Out No long er eligible based on patient's age to complete this topic IPV Vaccines Aged Out No longer eligi ble based on patient's age to complete this topic MMR Vaccines Aged Out No longer eligi ble based on patient's age to complete this topic Meningococcal ACWY Vaccine Aged Out N o longer eligible based on patient's age to complete this topic Meningococcal B Vaccine Aged Out No l onger eligible based on patient's age to complete this topic Pneumococcal Vaccine: Pediat rics (0 to 5 Years) and At-Risk Patients (6 to 49 Years) Aged Out No longer eligible b ased on patient's age to complete this topic RSV Immunization Patients Un romy 20 months Aged Out No longer eligible b ased on patient's age to complete this topic Varicella Vaccines Aged Out No longer eligible based on patient's age to complete this topic
--- OUTSIDE RECORDS SUMMARY | 2025-02-22 18:21 | XMS_ITS | Clinical Summary ---
Author Organization [facility] Address [address] [place] [address] Care Team Providers Care Assistant Director Of Plant Operations Name Role Phone Aleta Bryaan Primary Care Provider [phone] Allergies Active Allergy Reactions Criticality Noted Date Comments Penicillins Hives 12/21/2022 Encounters Date Type Department Care Team Description 12/11/2024 1:00 PM EDT Telehealth [address] [place] [address] Negar Estrada, [facility] [place] history of breast cancer (Primary Dx) 12/11/2024 myChart Message [facility] [address] [place] [address] Blueprint Reproducer: Negar Mejia [facility] 12/04/2024 Transcribe Orders [address] [place] [address] [place] Family history of breast cancer (Primary Dx) from Last 3 Months Social History Tobacco Use Types Packs/Day Years Used Date Smoking Tobacco: Never Assessed Comments No Sex and Gender Information Value Date Recorded Sex Assigned at Female 12/04/2024 12:56 PM EDT Legal Sex Female 1:39 PM EDT Gender Identity Female 12/05/2024 10:08 AM EDT Sexual Orientation Straight 12/05/2024 10 :08 AM EDT Last Filed Vital Signs Vital Sign Reading Time Taken Comments Blood Pressure 127/82 12/21/2022 7:30 PM EDT Pulse 74 12/21/2022 7:30 PM EDT Temperature 37 C (98.6 F) 12/21/2022 7:30 PM EDT Respiratory Rate 18 12/21/2022 7:30 PM EDT Oxygen Saturation 99% 12/21/2022 7:30 PM EDT Inhaled Oxygen Concentration - - Weight 108 kg (238 lb) 12/21/2022 1:52 PM EDT Height 162.6 cm (5' 4 ) 12/21/2022 1:52 PM EDT Body Mass Index 40.85 12/21/2022 1:52 PM EDT Plan of Treatment Health Maintenance Due Date Last Done Comments Cervical Cancer Screening 1980 Cologuard 1980 Colon Cancer Screening 1980 Colonoscopy 1980 FOBT / Fit Test 1980 HIV Screening 1980 HPV and Pap Smear 1980 Pap Smear 1980 Sigmoidoscopy 1980 Varicella Vaccines (1 of 2 - 13+ 2-dose series) 01/07/1993 Hepatitis B Vaccines (1 of 3 - 19+ 3-dose series) 01/07/1999 Mammogram 2020 Alcohol/Substance Use Screening 04/29/2024 COVID-19 Vaccine (1 - 2024-2 6 season) 2024 Influenza Vaccine (#1) 2024 8, 02/22/2018 DTaP,Tdap,and Td Vaccines (3 - Td or Tdap) 08/12/2032 08/12/2022, 09/27/2011 RSV Vaccine (60+ years old a nd patients) (1 - 1-dose 75+ series) 01/07/2055 Pneumococcal Vaccine: Pediatric (0-5 Years) and At-Risk Patients (6-50 Years) Aged Out No longer eligible based on patient's age to complete this topic Insurance [facility] [employer] HSNO/FREE CARE Care Teams Assistant Director Of Plant Operations Relationship Specialty Start Date End Date [place]an River [address] [place] [address] PCP - General Internal Medicine 12/21/22
== END 2025-02-22 15:25 | disposition home or self-care (01) ==
LOC: HO.HCC 14:56
PROVIDERS: PCP Internal Medicine; Visit Provider Clinical Nurse Specialist Psychiatric/Mental Health
DX: F15.91 Other stimulant use, unspecified, in remission (principal)
CPT/HCPCS: 99213